=== PATIENT | female | born 1950 | race Caucasian/White ===

== ENCOUNTER → 2016-07-14 | Outpatient (CLI) | payer OTHER ==
[~2016-07-14] VITALS: Ht 162.6 cm; Wt 81.6 kg
[~2016-07-14] MED LIST: ALEVE220 M2 PO; BIOTIN1000 MCG PO; CALCIUM 500 MG1 EACH PO; GARLIC500 M1 PO; HI B COMPLEX1 EAC1 PO; MULTIPLE VITAM1 EAC4 PO; NO DOZ200 MG PO; TYLENOL PM1 CAPLET PO; VISION PLUS LU1 EACH PO; VITAMIN C1000 MG PO; VITAMIN D400 UNI1 PO; VITAMIN E400 UNIT PO
== END | disposition home or self-care (01) ==
LOC: AMB 07:51
PROC: 0DBN8ZX Excision of Sigmoid Colon, Via Natural or Artificial Opening Endoscopic, Diagnostic (ICD-10-PCS; principal; 2016-07-14)
DX: Z12.11 Encounter for screening for malignant neoplasm of colon (principal); K63.5 Polyp of colon; K64.8 Other hemorrhoids; K62.89 Other specified diseases of anus and rectum; I10 Essential (primary) hypertension; G89.29 Other chronic pain; M25.511 Pain in right shoulder; E78.5 Hyperlipidemia, unspecified; Z88.1 Allergy status to other antibiotic agents; Z91.09 Other allergy status, other than to drugs and biological substances
CPT/HCPCS: 88305